=== PATIENT | male | born 1955 | race Caucasian/White ===

== ENCOUNTER 2020-05-21 12:55 | Emergency (ER) | payer OTHER, SELFPAY ==
[2020-05-21 12:55] VITALS: BP 137/91; PULSE 80; RESP 18; TEMP 36.6; O2SAT 97; BMI 21.4
--- NOTE | 2020-05-21 13:00 | XR_ITS ---
PROCEDURE: XR CHEST 2V CLINICAL HISTORY: soa, cough Shortness of air and cough,, smoker COMPARISON: No exams were available for comparison FINDINGS: The cardiomediastinal silhouette and pulmonary vascularity are within normal limits. COPD changes. No lobar consolidation or collapse. No acute bony abnormalities. IMPRESSION: COPD, no acute finding. Dictated by: Teodoro Castro MD 05/21/2020 14:11 Teodoro Castro MD in [place] 05/21/2020 14:11
--- NOTE | 2020-05-21 13:22 | PC.NURSE ---
pt to xray
[2020-05-21 13:33] LABS: Chloride 104 mmol/L (98-107)
[2020-05-21 13:34] LABS: Potassium 3.9 mmoL/L (3.5-5.1); Sodium 140 mmol/L (136-145)
[2020-05-21 13:36] LABS: Alanine Aminotransferase 28 U/L (12-78); Alkaline Phosphatase 133 U/L (38-126); Aspartate Amino Transferase 43 U/L (17-59); Blood Urea Nitrogen 11 mg/dl (9-20); Creatinine Clearance Estimated 71 mL/min (50-200); Estimated Glomerular Filt Rate 114 ml/min (>60); GFR (African American) 138 ML/MIN (>60)
[2020-05-21 13:37] LABS: Albumin Level 4.3 g/dl (3.5-5.0); Anion Gap 11.9 mEq/L (5-15); Calcium 9.6 mg/dl (8.4-10.2); Carbon Dioxide 28 mmol/L (22.0-30.0); Globulin 4.3 g/dL (1.3-3.2); Glucose 90 mg/dl (74-100); Total Protein,Serum 8.6 g/dl (6.3-8.2)
[2020-05-21 13:42] LABS: Lactic Acid 1.7 mmol/L (0.7-2.1)
--- NOTE | 2020-05-21 13:49 | HMH.EDGENADL ---
ED Disposition Clinical Impression: Acute bronchitis Qualifiers: Bronchitis organism: unspecified organism Qualified Code(s): J20.9 - Acute bronchitis, unspecified Disposition: Home, Self-Care Condition on Discharge: Good Instructions: DI for Acute Bronchitis Additional Instructions: Albuterol metered-dose inhaler. Prednisone as prescribed. Zithromax as prescribed. You are being provided with a list of physicians available for follow-up of your condition. Please call a physician on this list to arrange a follow-up appointment as soon as possible. Return to the emergency department if worsening shortness of breath, persistent fever greater than 100 degrees, coughing blood, persistent vomiting. Prescriptions: Albuterol Sulfate [Proventil-HFA 90mcg/puff Inh] 1 - 2 puffs IH Q6HP PRN #1 inh PRN Reason: Wheezing Transmission Status: Pending to [facility] predniSONE [Prednisone 20mg Tab] 20 mg PO BID #10 tab Transmission Status: Pending to [facility] Azithromycin [Zithromax 250mg tab] 250 mg PO DIRECTED #6 tab Transmission Status: Pending to [facility] Referrals: PCP,No [Primary Care Provider] - - Critical Care Critical Care Time: No Attestation: On 05/21/20, the high probability of a clinically significant, sudden or life threatening deterioration of the following system(s) required my full and direct attention, intervention and personal management. The time I documented below is in addition to time spent performing reported procedures but includes the following listed in this critical care notation. Medical Decision Making - Jose Inquiry Pt receiving controlled substance: No Vital Signs: 05/21/20 12:55 Temperature 97.9 F Temperature Source Oral Pulse Rate [Right Radial] 80 Respiratory Rate 18 Blood Pressure [Right Arm] 137/91 H Blood Pressure Mean [Right Arm] 106 Blood Pressure Source [Right Arm] Automatic Cuff Blood Pressure Position [Right Arm] Sitting 02 Sat by Pulse Oximetry 97 Oxygen Delivery Method Room Air - Lab Data Lab Results 05/21/20 13:16: Sodium 140, Potassium 3.9, Chloride 104, Carbon Dioxide 28, Anion Gap 11.9, BUN 11, Creatinine 0.70, Estimated Creat Clear 71, Estimated GFR 114, Est GFR ( Amer) 138, Glucose 90, Calcium 9.6, Total Bilirubin 1.0, AST 43, ALT 28, Alkaline Phosphatase 133 H, Total Protein 8.6 H, Albumin 4.3, Globulin 4.3 H, Albumin/Globulin Ratio 1.0 L 05/21/20 13:16: Lactate 1.7 05/21/20 14:10: WBC 8.3, RBC 4.61, Hgb 12.7 L, Hct 37.7 L, MCV 81.6, MCH 27.5, MCHC 33.7, RDW 13.8, Plt Count 326, MPV 7.1 L, Neut % (Auto) 88.0 H, Lymph % (Auto) 7.0 L, Crosby % (Auto) 2.8, Eos % (Auto) 1.9, Baso % (Auto) 0.3, Neut # (Auto) 7.3, Lymph # (Auto) 0.6 L, Crosby # (Auto) 0.2, Eos # (Auto) 0.2, Baso # (Auto) 0.0 Result diagrams: 05/21/20 14:10 05/21/20 13:16 Orders (Tests/Meds): ORDERS Category Date Time Status Complete Blood Count Auto Diff Stat Lab 05/21/20 14:10 Results Covid-19 Nasal PCR ([facility]) Routine Lab 05/21/20 14:08 Received Blood Culture Stat Micro 05/21/20 13:16 Received - Radiology Data #1 Image(s): Chest Image Reviewed: Yes I reviewed the patient's radiology image, Yes I have reviewed radiologist's interpretation Preliminary Findings: Normal/NAD PROCEDURE: XR CHEST 2V CLINICAL HISTORY: soa, cough Shortness of air and cough,, smoker COMPARISON: No exams were available for comparison FINDINGS: The cardiomediastinal silhouette and pulmonary vascularity are within normal limits. COPD changes. No lobar consolidation or collapse. No acute bony abnormalities. IMPRESSION: COPD, no acute finding. Dictated by: Teodoro Castro MD 05/21/2020 14:11 Teodoro Castro MD in [place] 05/21/2020 14:11 General Adult HPI - General Chief complaint: Shortness of Breath/Dyspnea Stated complaint: cogh, SOA Time Seen by Provider: 05/21/20 13:58 Mode of Arrival: Ambulatory Limitations
[2020-05-21 14:28] LABS: Basophils % 0.3 % (0.1-2.0); Eosinophils # 0.2 K/mm3 (0.0-0.4); Eosinophils % 1.9 % (0.1-12.0); Hematocrit 37.7 % (42.0-52.0); Hemoglobin 12.7 g/dL (14.1-18.0); Lymphocytes # 0.6 K/mm3 (0.7-4.5); Mean Corpuscular HGB Conc 33.7 g/dL (31.8-35.4); Mean Corpuscular Hemoglobin 27.5 pg (27.0-31.2); Mean Corpuscular Volume 81.6 fl (80-94); Mean Platelet Volume 7.1 fl (7.4-10.4); Monocytes # 0.2 K/mm3 (0.1-1.0); Monocytes % 2.8 % (1.7-9.3); Neutrophils # 7.3 K/mm3 (1.8-7.8); Platelet Count 326 K/mm3 (142-424); Red Blood Count 4.61 M/mm3 (4.60-6.20); Red Cell Distribution Width 13.8 % (11.5-17.5); White Blood Count 8.3 K/mm3 (4.8-10.8)
[2020-05-21 14:32] LABS: MANUAL DIFFERENTIAL MANUAL DIFFERENTIAL (MANUAL DIFF)
[2020-05-21 14:55] VITALS: BP 135/71; PULSE 84; RESP 18; TEMP 36.6; O2SAT 96
[2020-05-21 15:04] LABS: Lymphocytes % 10 % (10-50); Monocytes % 1 % (2-9); Neutrophils % 86 % (42-76); Platelet Estimate Normal; Total Cells Counted 100
[2020-05-21 15:06] LABS: RBC Morphology Normal
--- NOTE | 2020-05-24 17:42 | PC.NURSE ---
attempted to call to inform pt of positive bp. No answer at this time.
== END 2020-05-21 14:55 | disposition home or self-care (01) ==
PROVIDERS: Emergency Provider Emergency Medicine
DX: Z20.822 Contact with and (suspected) exposure to COVID-19 (principal); J20.9 Acute bronchitis, unspecified; F17.210 Nicotine dependence, cigarettes, uncomplicated; Z88.0 Allergy status to penicillin
CPT/HCPCS: 36415; 71046; 80053; 83605; 85007; 85025; 87040; 87077; 87186; 99283; U0003

== ENCOUNTER 2020-07-27 12:37 | Emergency (ER) | payer SELFPAY ==
[2020-07-27 13:30] VITALS: BP 131/77; PULSE 73; RESP 21; TEMP 36.8; O2SAT 97; BMI 20.7
--- NOTE | 2020-07-27 13:58 | HMH.EDUTC ---
[facility] [place] Clinical Impression: Allergy to poison yaquelin Disposition: Home, Self-Care Condition on Discharge: Good Instructions: Poison [place], Poison [place], Poison [place], DI for Poison [place] Allergy Prescriptions: predniSONE [Prednisone 20mg Tab] 20 mg PO BID #10 tab Prescription Printed Triamcinolone Acetonide 15 gm TP BID #1 cream..g. Prescription Printed Referrals: Provider,Referral, MD [Primary Care Provider] - Time of Disposition: 14:04 Medical Decision Making - Jose Inquiry Pt receiving controlled substance: No Vital Signs: 07/27/20 13:30 Temperature 98.2 F Temperature Source Oral Pulse Rate [Right Brachial] 73 Respiratory Rate 21 Blood Pressure [Right Arm] 131/77 Blood Pressure Mean [Right Arm] 95 Blood Pressure Source [Right Arm] Automatic Cuff Blood Pressure Position [Right Arm] Sitting 02 Sat by Pulse Oximetry 97 Oxygen Delivery Method Room Air [facility] [place] HPI - General Chief complaint: Urgent Treatment Center Stated complaint: allergic reaction Time Seen by Provider: 07/27/20 13:58 Mode of Arrival: Ambulatory Source of Information: Patient Limitations: No Limitations Description of Symptoms (Recalled from Triage Doc. by RN): PATIENT C/O RASH ALL OVER X 2 WEEKS, WITH SWELLING TO EYES AND BLURRY VISION. UNKNOWN CAUSE HEENT Symptoms (Recalled from RN notes): No Resp Symptoms (Recalled from RN notes): No Skin Symptoms (Recalled from RN notes): Yes MS Symptoms (Recalled from RN notes): No Functional Status (Recalled from RN notes): WNL - History of Present Illness Provider Complaint: 64 yr old male presnets for rash to andre arms and eyes. pt states he has been treating as he had poison yaquelin but rash keeps becoming worse. - Related Data Previous Rx's Medication Instructions Recorded Albuterol Sulfate [Proventil-HFA 1 - 2 puffs IH Q6HP PRN #1 inh 05/21/20 90mcg/puff Inh] Azithromycin [Zithromax 250mg 250 mg PO DIRECTED #6 tab 05/21/20 tab] predniSONE [Prednisone 20mg 20 mg PO BID #10 tab 05/21/20 Tab] Triamcinolone Acetonide 15 gm TP BID #1 cream..g. 07/27/20 predniSONE [Prednisone 20mg 20 mg PO BID #10 tab 07/27/20 Tab] Allergies Allergy/AdvReac Type Severity Reaction Status Date / Time Penicillins Allergy Verified 05/21/20 13:00 - Worker's Comp Is this a Worker's Comp case?: No [facility] History - Hepatitis A Screen Drug use history?: No High risk sexual behaviors?: No History of sexually transmitted infection?: No Currently employed?: No Childcare worker?: No Do you have indoor plumbing?: Yes Do you have electricity?: Yes Attestation statement:: This patient has been screened for Hepatitis A risk factors. I have reviewed the patient's past medical history: Yes - Social History Alcohol Intake: never Occupational Status: other ROS Obtained: Yes Systems reviewed as appropriate & no additional complaints - Constitutional Constitutional: Reports system reviewed and no additional complaints, except as docu, Denies fever(s) - Eyes Eyes: Reports system reviewed and no additional complaints, except as docu, Denies blurry vision - ENT Ears, Nose, Mouth, and Throat: Reports system reviewed and no additional complaints, except as docu, Denies sore throat - Cardiovascular Cardiovascular: Reports system reviewed and no additional complaints, except as docu, Denies chest pain - Respiratory Respiratory: Reports system reviewed and no additional complaints, except as docu, Denies chest congestion - Gastrointestinal Gastrointestingal: Reports: system reviewed and no additional complaints, except as docu. Denies: loose stools - Genitourinary Male Genitourinary: Reports system reviewed and no additional complaints, except as docu, Denies urinary frequency - Musculoskeletal Musculoskeletal: Reports system reviewed and no additional complaints, except as docu, Denies joint pain - Integumentary/Breasts Skin/Breast: Reports system review
[2020-07-27 14:17] VITALS: BP 131/77; PULSE 73; RESP 21; TEMP 36.8; O2SAT 97
== END 2020-07-27 14:20 | disposition home or self-care (01) ==
PROVIDERS: Emergency Provider Nurse Practitioner Family
DX: L23.7 Allergic contact dermatitis due to plants, except food (principal)
CPT/HCPCS: 96372; 99202; G0463

== ENCOUNTER → 2022-06-17 14:50 | Outpatient (CLI) | payer MEDICAID, SELFPAY | PROVIDERS: PCP Physician Assistant; Visit Provider Nurse Practitioner | DX: R06.09 Other forms of dyspnea (principal); R07.89 Other chest pain; R60.0 Localized edema; F17.200 Nicotine dependence, unspecified, uncomplicated | CPT/HCPCS: 93306 ==

== ENCOUNTER → 2022-10-02 12:50 | Outpatient (CLI) | payer MEDICAID, SELFPAY | PROVIDERS: PCP Nurse Practitioner; Visit Provider Internal Medicine Pulmonary Disease | DX: R06.02 Shortness of breath (principal) | CPT/HCPCS: 94762 ==

== ENCOUNTER → 2022-10-13 12:43 | Outpatient (CLI) | payer MEDICAID, SELFPAY | PROVIDERS: PCP Nurse Practitioner; Visit Provider Internal Medicine Pulmonary Disease | DX: R06.09 Other forms of dyspnea (principal); J44.9 Chronic obstructive pulmonary disease, unspecified | CPT/HCPCS: 87070; 87116; 87186; 87205; 87206 ==

== ENCOUNTER → 2022-10-20 14:01 | Outpatient (CLI) | payer MEDICAID, SELFPAY ==
--- NOTE | 2022-10-20 14:02 | CT_ITS ---
FINAL REPORT TECHNIQUE: Axial images were obtained through the chest without contrast. CLINICAL HISTORY: Abnormal CXR with positive TB Quantiferon COMPARISON: None FINDINGS: The lungs are clear. The heart size is normal. There is no pericardial or pleural effusion. There are healed fracture deformities in multiple posterior left-sided ribs. Limited images of the upper abdomen are unremarkable. No suspicious infiltrate or nodule identified. IMPRESSION: No acute process. Reviewed, Interpreted and Dictated by Pravin Lang MD Transcribed by Nohemi Daugherty Authenticated and [facility]
== END ==
PROVIDERS: PCP Nurse Practitioner; Visit Provider Internal Medicine Pulmonary Disease
DX: J98.4 Other disorders of lung (principal); R91.8 Other nonspecific abnormal finding of lung field; Z22.7 Latent tuberculosis
CPT/HCPCS: 71250

== ENCOUNTER → 2022-10-28 06:17 | Outpatient (CLI) | payer MEDICAID, SELFPAY ==
[2022-10-28 08:08] LABS: Basophils % 0.4 % (0.1-2.0); Eosinophils # 0.3 K/mm3 (0.0-0.4); Eosinophils % 3.6 % (0.1-12.0); Hematocrit 50.9 % (42.0-52.0); Hemoglobin 16.1 g/dL (14.1-18.0); Lymphocytes # 1.9 K/mm3 (0.7-4.5); Lymphocytes % 26.4 % (10-50); Mean Corpuscular HGB Conc 31.6 g/dL (31.8-35.4); Mean Corpuscular Hemoglobin 26.9 pg (27.0-31.2); Mean Corpuscular Volume 85.2 fl (80-94); Mean Platelet Volume 10.2 fl (7.4-10.4); Monocytes # 0.5 K/mm3 (0.1-1.0); Monocytes % 6.3 % (1.7-9.3); Neutrophils # 4.6 K/mm3 (1.8-7.8); Neutrophils % 63.2 % (37.0-80.0); Platelet Count 335 K/mm3 (142-424); Red Blood Count 5.97 M/mm3 (4.60-6.20); Red Cell Distribution Width 15.4 % (11.5-17.5); White Blood Count 7.2 K/mm3 (4.8-10.8)
[2022-10-28 08:20] LABS: Alanine Aminotransferase 48 U/L (12-78); Albumin Level 4.4 g/dl (3.5-5.0); Alkaline Phosphatase 148 U/L (38-126); Anion Gap 24.1 mEq/L (5-15); Aspartate Amino Transferase 69 U/L (17-59); Bilirubin,Total 0.5 mg/dl (0.2-1.3); Blood Urea Nitrogen 12 mg/dl (9-20); Calcium 9.7 mg/dl (8.4-10.2); Carbon Dioxide 21 mmol/L (22.0-30.0); Chloride 101 mmol/L (98-107); Estimated Glomerular Filt Rate 97 ml/min (>60); GFR (African American) 117 ML/MIN (>60); Globulin 4.4 g/dL (1.3-3.2); Potassium 4.1 mmoL/L (3.5-5.1); Sodium 142 mmol/L (136-145); Total Protein,Serum 8.8 g/dl (6.3-8.2)
[2022-10-28 09:26] LABS: Glucose 61 mg/dl (74-100)
== END ==
PROVIDERS: PCP Nurse Practitioner; Visit Provider Nurse Practitioner
DX: J44.9 Chronic obstructive pulmonary disease, unspecified (principal)
CPT/HCPCS: 80053; 85025

== ENCOUNTER → 2022-11-16 08:38 | Outpatient (CLI) | payer MEDICAID, SELFPAY ==
[2022-11-16 09:31] LABS: Basophils % 0.6 % (0.1-2.0); Eosinophils # 0.3 K/mm3 (0.0-0.4); Eosinophils % 5.5 % (0.1-12.0); Hematocrit 45.1 % (42.0-52.0); Hemoglobin 14.6 g/dL (14.1-18.0); Lymphocytes # 2.2 K/mm3 (0.7-4.5); Lymphocytes % 39.7 % (10-50); Mean Corpuscular HGB Conc 32.3 g/dL (31.8-35.4); Mean Corpuscular Hemoglobin 26.9 pg (27.0-31.2); Mean Corpuscular Volume 83.5 fl (80-94); Mean Platelet Volume 8.4 fl (7.4-10.4); Monocytes # 0.4 K/mm3 (0.1-1.0); Monocytes % 7.6 % (1.7-9.3); Neutrophils # 2.6 K/mm3 (1.8-7.8); Neutrophils % 46.6 % (37.0-80.0); Platelet Count 214 K/mm3 (142-424); Red Cell Distribution Width 15.3 % (11.5-17.5); White Blood Count 5.5 K/mm3 (4.8-10.8)
[2022-11-16 09:58] LABS: Alanine Aminotransferase 44 U/L (12-78); Aspartate Amino Transferase 56 U/L (17-59)
[2022-11-16 09:59] LABS: Albumin Level 3.6 g/dl (3.5-5.0); Alkaline Phosphatase 124 U/L (38-126); Bilirubin,Direct 0.7 mg/dl (0.0-0.4); Bilirubin,Total 0.7 mg/dl (0.2-1.3); Cholesterol 157 mg/dl (140-200); HDL Cholesterol 39 mg/dl (40-60); Total Protein,Serum 7.2 g/dl (6.3-8.2); Triglycerides 65 mg/dl (30-150); VLDL Cholesterol 13 mg/dL (0-40)
[2022-11-16 10:10] LABS: Direct LDL Cholesterol 89.57 mg/dL (100-129)
[2022-11-16 10:30] LABS: Thyroid Stimulating Hormone 0.88 uIU/mL (0.465-4.68)
[2022-11-16 10:36] LABS: Chloride 112 mmol/L (98-107)
[2022-11-16 10:37] LABS: Sodium 142 mmol/L (136-145)
[2022-11-16 10:39] LABS: Alanine Aminotransferase 42 U/L (12-78); Alkaline Phosphatase 134 U/L (38-126); Aspartate Amino Transferase 45 U/L (17-59); Bilirubin,Total 0.5 mg/dl (0.2-1.3); Blood Urea Nitrogen 9 mg/dl (9-20); Estimated Glomerular Filt Rate 135 ml/min (>60); GFR (African American) 164 ML/MIN (>60)
[2022-11-16 10:40] LABS: Albumin Level 3.6 g/dl (3.5-5.0); Albumin/Globulin Ratio 1.1 (1.1-1.8); Carbon Dioxide 19 mmol/L (22.0-30.0); Globulin 3.3 g/dL (1.3-3.2); Glucose 116 mg/dl (74-100); Total Protein,Serum 6.9 g/dl (6.3-8.2)
[2022-11-16 11:08] LABS: Free T4 (Free Thyroxine) 1.54 ng/dl (0.78-2.19)
== END ==
LOC: LAB 08:38
PROVIDERS: Physician Assistant; PCP Nurse Practitioner; Visit Provider Internal Medicine Pulmonary Disease
DX: J84.9 Interstitial pulmonary disease, unspecified (principal); I11.9 Hypertensive heart disease without heart failure; R06.09 Other forms of dyspnea; E11.9 Type 2 diabetes mellitus without complications; R60.0 Localized edema; F17.200 Nicotine dependence, unspecified, uncomplicated
CPT/HCPCS: 36415; 80053; 80061; 80076; 84439; 84443; 85025

== ENCOUNTER → 2022-12-09 07:42 | Outpatient (CLI) | payer MEDICAID, SELFPAY ==
--- NOTE | 2022-12-09 09:19 | PC.NURSE ---
PFT and 6 Minute Walk Test completed without incident. Pt did cough a lot during the FVC portion of the PFT and repeatability was not met. Pt did however give a very good effort. Albuterol 0.083% given via HHN, per protocol, Pt tolerated tx well.
== END ==
PROVIDERS: PCP Nurse Practitioner; Visit Provider Internal Medicine Pulmonary Disease
DX: R06.09 Other forms of dyspnea (principal)
CPT/HCPCS: 94060; 94618; 94726; 94729

== ENCOUNTER → 2023-02-08 12:53 | Outpatient (CLI) | payer MEDICARE, MEDICAID, SELFPAY ==
[2023-02-08 14:24] LABS: Basophils % 0.3 % (0.1-2.0); Eosinophils # 0.2 K/mm3 (0.0-0.4); Eosinophils % 3.3 % (0.1-12.0); Hemoglobin 12.8 g/dL (14.1-18.0); Lymphocytes # 1.6 K/mm3 (0.7-4.5); Lymphocytes % 33.3 % (10-50); Mean Corpuscular HGB Conc 34.5 g/dL (31.8-35.4); Mean Corpuscular Hemoglobin 27.6 pg (27.0-31.2); Mean Corpuscular Volume 80.2 fl (80-94); Mean Platelet Volume 7.2 fl (7.4-10.4); Monocytes # 0.3 K/mm3 (0.1-1.0); Monocytes % 6.8 % (1.7-9.3); Neutrophils # 2.7 K/mm3 (1.8-7.8); Neutrophils % 56.2 % (37.0-80.0); Platelet Count 326 K/mm3 (142-424); Red Blood Count 4.62 M/mm3 (4.60-6.20); Red Cell Distribution Width 14.8 % (11.5-17.5); White Blood Count 4.8 K/mm3 (4.8-10.8)
[2023-02-08 14:42] LABS: Chloride 106 mmol/L (98-107); Potassium 3.3 mmoL/L (3.5-5.1); Sodium 138 mmol/L (136-145)
[2023-02-08 14:44] LABS: Blood Urea Nitrogen 10 mg/dl (9-20); Estimated Glomerular Filt Rate 167 ml/min (>60); GFR (African American) 202 ML/MIN (>60)
[2023-02-08 14:45] LABS: Alanine Aminotransferase 28 U/L (12-78); Albumin Level 3.5 g/dl (3.5-5.0); Alkaline Phosphatase 126 U/L (38-126); Anion Gap 8.3 mEq/L (5-15); Aspartate Amino Transferase 30 U/L (17-59); Bilirubin,Total 0.8 mg/dl (0.2-1.3); Calcium 8.4 mg/dl (8.4-10.2); Carbon Dioxide 27 mmol/L (22.0-30.0); Globulin 3.5 g/dL (1.3-3.2); Glucose 121 mg/dl (74-100)
== END ==
PROVIDERS: PCP Nurse Practitioner; Visit Provider Internal Medicine Pulmonary Disease
DX: Z22.7 Latent tuberculosis (principal); J84.9 Interstitial pulmonary disease, unspecified; J45.909 Unspecified asthma, uncomplicated
CPT/HCPCS: 36415; 80053; 85025; 87116; 87186; 87206

== ENCOUNTER 2023-10-25 14:41 | Outpatient (CLI) | payer MEDICARE, SELFPAY ==
--- NOTE | 2023-10-25 14:45 | CT_ITS ---
FINAL REPORT TECHNIQUE: Thin section axial images were obtained from the lung apices to the upper abdomen by computed tomography. Reformatted images were obtained and reviewed. This study was performed with techniques to keep radiation doses al low as reasonably achievable (ALARA). Individualized dose reduction techniques using automated exposure control or adjustment of mA and/or kV according to the patient's size were employed. CLINICAL HISTORY: lung cancer screening. Smoker. 1 PPD x54 years. COMPARISON: None FINDINGS: CHEST CT LOW DOSE 68-year-old male, current smoker, 28-kkkf-dtwb history. CTDI vol (mGy): 2.9 DLP (mGy-cm): 107.33 There is no axillary adenopathy. There is no mediastinal or hilar mass or adenopathy. The heart is normal in size. There is no pericardial or pleural effusion. There are healed fractures of several left ribs. Lung window images demonstrate no suspicious infiltrate or nodule. Limited images of the upper abdomen are unremarkable. IMPRESSION: Lung-RADS category 1. Recommend 12 month follow up low dose chest CT. Reviewed, Interpreted and Dictated by Pravin Lang MD Transcribed by Nohemi Daugherty Authenticated and [facility]
== END 2023-10-25 23:59 | disposition home or self-care (01) ==
LOC: RAD 14:42
PROVIDERS: PCP Family Medicine; Visit Provider Internal Medicine Pulmonary Disease
DX: F17.210 Nicotine dependence, cigarettes, uncomplicated (principal)
CPT/HCPCS: 71271

== ENCOUNTER 2024-07-13 07:34 | Outpatient (CLI) | payer MEDICARE, MEDICAID, SELFPAY ==
--- OUTSIDE RECORDS SUMMARY | 2024-07-13 07:37 | XMS_ITS | Continuity of Care Document ---
Author Organization [facility] Phone Care Team Providers Care Life Science Technical Officer Name Role Phone JOSE G ALONSO Surgeon ALEXANDER FRANKLIN Admitting ALEXANDER FRANKLIN Primary Attending [phone] SARA PERDUE Primary Care ALEXANDER FRANKLIN Unavailable RESULTS Patient: IVETT PETTY Date of : September [birth year] 7 LABORATORY RESULTS Information is not available LABORATORY NARRATIVE RESULTS Information is not available RADIOLOGY RESULTS ORDER 100: SP MYELOGRAM LUMB AR MR - CT (LOINC: 64142-5) ORDER DATE: May 25, 2024 3:24:00 PM [place] PERFORMING LAB: [address] [id number] Final Result Date: May 25, 2024 7:36:57 PM [place] (TECH: [id number]) [address] [address] (Phone) IMAGING REPORT Name: JOVANNY ROOT : 1955 Age: 68 Years Patient Type: Outpatient Sex: M Exam Description: SP MYELOGRAM LUMBAR MR - CT Exam Reason: M54.16 Order Date/Time: 05/25/2024 12:44:40 PM Dictated By: Jose G Alonso MD Ordering Physician: ALEXANDER FRANKLIN Attending Physician: ALEXANDER FRANKLIN FL LUMBOSACRAL MYELOGRAM BUNDLED ATTENDING PHYSICIAN: Dr. Jose G Alonso MD PHYSICIAN MANAGER LOCAL: Ashkan Christian PA-C Procedure was performed by Ashkan Christian PA-C under the supervision of Dr. Jose G Alonso MD. INDICATION: M54.16 ,lower back pain and lower extremity pain COMPARISON: None available. PROCEDURE: The procedure as well as its risks such as infection, bleeding and spinal headache were explained to the patient and written informed consent obtained. The patient was positioned prone on the fluoroscopic table. The lower lumbar spine was prepped and draped in the usual sterile fashion. An appropriate access point at the L4-L5 disc space was chosen, and the skin marked and anesthetized with 1% lidocaine. Under fluoroscopic guidance, a 20-gauge spinal needle was advanced with its stylette until spontaneous return of CSF was observed. 12 mL of Isovue 200M was PAGE 1 OF 2 Name: JOVANNY ROOT : 1955 Age: 68 Years Patient Type: Outpatient Sex: M Exam Description: SP MYELOGRAM LUMBAR MR - CT Exam Reason: M54.16 Order Date/Time: 05/25/2024 12:44:40 PM slowly injected intrathecally under fluoroscopy. The needle was withdrawn and a sterile bandage applied to the puncture site. The fluoroscopic table was tilted so intrathecal contrast flowed cephalad to the T12 region. The patient suffered no immediate complications. SPOT FILMS: 3 RADIATION DOSE: Radiation exposure in reference to Air Kerma: 60.29 mGy FLUOROSCOPY TIME: 2.3 minutes IMPRESSION: Lumbar myelogram performed as described above without complications. Please see CT report. Reviewed, Interpreted and Dictated by Jose G Alonso MD Transcribed by PARRIS Luther Authenticated and Electronically signed by: Jose G Alonso MD 05/25/2024 03:36 PM EDT PAGE 2 OF 2 ORDER 200: CT LUMBAR W (SACHI C: [id number]) ORDER DATE: May 25, 2024 3:24:00 PM [facility] PERFORMING LAB: [address] [id number] Final Result Date: May 29, 2024 7:17:27 PM [facility] (TECH: HARSHA CHAIREZ) [address] [address] (Phone) IMAGING REPORT Name: JOVANNY ROOT : 1955 Age: 68 Years Patient Type: Outpatient Sex: M Exam Description: CT LUMBAR W Exam Reason: M54.16 LUMBAR RADICULOPATHY Order Date/Time: 05/25/2024 12:39:32 PM Dictated By: Mike Lopez MD Ordering Physician: ALEXANDER FRANKLIN Attending Physician: ALEXANDER FRANKLIN CT lumbar spine status post myelogram HISTORY: Low back pain TECHNIQUE: Axial, coronal and sagittal scans status post myelography performed. Iterative reconstruction was performed to control radiation dose. COMPARISON: None available previous CT scan dated 01-22 the abdomen and pelvis is unavailable on PACS system FINDINGS: Conus is at T12-L1. T12-L1: Mild degenerative disc disease and facet disease. L1-L2: Mild indentation superior endplate of L2 likely a minimal old compression fracture 5% and stable. Mild annular disc bulge and left-sided osteophyte contributing to mild left neural foraminal narrowing. No nerve root cut off however seen. No significant cord impingement. Mild facet hypertrophy and DJD. L2-3: Mild degenerative disc disease and minimal annular disc bulge PAGE 1 OF 3 Name: JOVANNY ROOT : 1955 Age: 68 Years Patient Type: Outpatient Sex: M Exam Description: CT LUMBAR W Exam Reason: M54.16 LUMBAR RADICULOPATHY Order Date/Time: 05/25/2024 12:39:32 PM causing mild neural foramen narrowing on the left more than right. There is mild facet DJD. There is mild spinal canal stenosis. L3-4: Yilj-lr-bwdjsgtt diffuse annular disc bulge causing neural foraminal narrowing more left than right. There is moderate facet hypertrophy and DJD left worse than right. Ligamentum flavum hypertrophy. There is moderate spinal canal stenosis. L4-5: Moderate to severe degenerative disc disease and facet disease. There is facet hypertrophy and ligamentum flavum hypertrophy moderate to severe spinal canal stenosis. There is also bilateral neural foraminal stenosis due to annular disc bulge and severe facet hypertrophy worse on the right than left. L5-S1: There is erosion of the inferior endplate of L5 and superior endplate of S1 along with a moderate amount of paraspinal soft tissue swelling concerning for disc space infection. Small air can be seen in the right lateral joint space. There is significant bilateral neural foramen narrowing which is severe. There is also moderate osteophyte posteriorly and moderate spinal canal stenosis. Facet hypertrophy which is moderate to severe. Mild DJD in the SI joints. Atherosclerotic aorta and iliacs. Constipation. Both kidneys are grossly normal. IMPRESSION: 1. 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 2. Moderate to severe spinal canal stenosis L4-5. 3. Moderate spinal canal stenosis L3-4. Electronically signed by: Mike Lopez MD 05/29/2024 03:17 PM EDT RP PAGE 2 OF 3 : 1955 Age: 68 Years Patient Type: Outpatient Sex: M Exam Description: CT LUMBAR W Exam Reason: M54.16 LUMBAR RADICULOPATHY Order Date/Time: 05/25/2024 12:39:32 PM Principal Rivet Bucker Name: Mike Lopez Provider ID: [id number] PAGE 3 OF 3 PATHOLOGY NARRATIVE RESULTS Information is not available MICROBIOLOGY RESULTS No Micro Labs/Results Exist for Patient BLOOD ADMIN RESULTS Information is not available MEDICATIONS HOME MEDICATIONS Status RXNORM NDC Medication Dose Route Frequency Dates Comments Reported By Updated By Drug Treatment Unknown DISCHARGE MEDICATIONS Status RXNORM NDC Medication Dose Route Frequency Dates Comments Physician Updated By No Discharge Medication Info rmation Available INPATIENT MEDICATIONS Status RXNORM NDC Medication Dose Route Frequency Rat e Quantity Dates Comments Physician Updated By No Inpatient Medication Info rmation Available SOCIAL HISTORY SOCIAL HISTORY SNOMED-CT Social History Element Description Effective Dates Offered Cessation Comment UpdatedBy [id number] Smoking Status Unknown If Ever Smoked SOCIAL HISTORY - Gender Sex: Male SOCIAL HISTORY - Status : status i nformation is not available Intention in Next Year: intention information is not available SOCIAL HISTORY - Sexual Behavior Sexual Orientation Gender Identity SNOMED-CT Description SNO MED -CT Description Activity Level No of Partners Partner Type UpdatedBy Information is not available VITAL SIGNS PATIENT VITAL SIGNS This section displays the mo st recent value for each vital sign as of May 30, 2024 2:17:46 AM [place] Loinc Code Vital Sign Activity Date Result Updated By 8462-4 Diastolic blood pressure May 25, 2024 7:00:00 PM UT 74.0 mm[Hg] [id number] on May 25, 2024 7:01:59 PM UT 8867-4 Heart rate May 25, 2024 7:00:00 PM UT 91 /min [id number] on May 25, 2024 7:01:59 PM [facility] 12699-7 Oxygen saturation in Arterial blood by Pulse oximetry May 25, 2024 7:00:00 PM [place] 96.0 % [id number] on May 25, 2024 7:01:59 PM [facility] 9279-1 Respiratory rate May 25, 2024 7:00:00 PM UTC 18 /min [id number] on May 25, 2024 7:01:59 PM [facility] 8480-6 Systolic blood pressure April 7:00:00 PM UTC 128.0 mm[Hg] [id number] on May 25, 2024 7:01:59 PM [facility] PEDIATRIC GROWTH CHART - VITAL SIGNS This section displays Head C ircumference Percentile, Weight for Length Percentile and BMI Percentile Loinc Code Pediatric Measure Age (Months) Result Updat ed By No Pediatric Growth Chart Pe rcentile Information Available. PROCEDURES PATIENT PROCEDURES Procedure information is not available. PROCEDURE NOTE Note Title Operative/Procedure Note Date Of Service May 25, 2024 4:27: 06 PM UT Created By [id number] on May 25, 2024 4:27:06 PM UT Signed By [id number] on May 26, 2024 5:29:01 PM UT Pre-Procedure Diagnosis Lumbar and lower extremity pain Procedure / Surgery None Fluoroscopy guided lumbar myelogram Anesthesia Type Local anesthesia Estimated Blood Loss Minimal, less than 3cc. Complications None Procedure Description / Findings Fluoroscopy guided lumbar myelogram was performed. Access to the thecal sac was obtained at the L4-5 level. 12cc of Isovue 200M was injected into the thecal sac. Electronically signed by SANJEEV PRADO on 1228 I hereby attest the note that was written on this patient accurately reflects the notations made when patient was examined. Electronically signed by VINICIO ARITA MD on 1329 [facility] Problems Concern Status Health Concern problem infor mation not available. Smoking Status Status Years Used Consumed packs p er day Health Concern smoking histo ry information not available. Family History Concern Status Health Concern family histor y information not available. ENCOUNTERS ENCOUNTER INFORMATION Reason for Visit MYELOGRAM AND CT LSP INE W Admission May 25, 2024 3:10:[address] [address] Discharge May 26, 2024 3:10:00 AM [place] DI SCHARGED TO HOME OR SELF CARE ENCOUNTER DIAGNOSES Notes information is not jag ilable. Code System Diagnosis Onset Date Diagnosis information is not available. ABSTRACT DIAGNOSES Code System Diagnosis Updated By M54.16 ICD10 RADICULOPATHY, LUMBAR REGION [id number] on May 29, 2024 3:53:21 PM [facility] M54.16 ICD10 RADICULOPATHY, LUMBAR REGION [id number] on May 29, 2024 3:53:21 PM [facility] CARE TEAM Care Life Science Technical Officer Role JOSE G ALONSO Surgeon ALEXANDER FRANKLIN Admitting ALEXANDER FRANKLIN Primary Attending SARA PERDUE Primary Care ALEXANDER FRANKLIN Referring CARE TEAM CARE plug assembler Role on Team Status Start Date End Date Update d By VINICIO ARITA MD Surgeon normal May 25, 2024 3:10:00 PM [place] May 26, 2024 3:10:00 AM UT [id number] on May 29, 2024 3:53:28 PM [facility] IRON Solano PCP normal May 25, 2024 3:18:13 PM UT May 25, 2024 4:00:00 AM [facility] [id number] on May 29, 2024 3:53:[address] BACK NAME IN PCP normal May 16, 2024 3:10:06 PM UT May 25, 2024 3:18:13 PM [facility] [id number] on May 29, 2024 3:53:28 PM [facility] NOEMI PRADO Referring normal May 16, 2024 3:10:06 PM UT May 25, 2024 4:00:00 AM UT [id number] on May 29, 2024 3:53:28 PM [facility] NOEMI PRADO Attending normal May 16, 2024 3:10:06 PM UT May 25, 2024 4:00:00 AM UT [id number] on May 29, 2024 3:53:28 PM [facility] NOEMI PRADO Admitting normal May 16, 2024 3:10:06 PM [facility] May 25, 2024 4:00:00 AM UT [id number] on May 29, 2024 3:53:28 PM [facility]
[2024-07-13] MEDS: ALBUTEROL 0.083% 2.5 MG/3 ML NEB IH (08:45)
== END 2024-07-13 23:59 | disposition home or self-care (01) ==
LOC: RT 07:36
PROVIDERS: PCP Family Medicine; Visit Provider Internal Medicine Pulmonary Disease
DX: J44.9 Chronic obstructive pulmonary disease, unspecified (principal)
CPT/HCPCS: 94060; 94618